=== PATIENT | male | born 1990 | race African-American/Black ===

== ENCOUNTER 2017-12-03 17:01 | Emergency (ER) | payer BC ==
[2017-12-03] MEDS ORDERED: Ibuprofen 800 MG TAB ONE (17:21)
== END 2017-12-03 18:02 | disposition home or self-care (01) ==
LOC: NAV ERS 17:01
DX: J06.9 Acute upper respiratory infection, unspecified (principal)
CPT/HCPCS: 87081; 87430; 99283

== ENCOUNTER 2018-03-25 17:11 | Emergency (ER) | payer BC ==
[2018-03-25] MEDS ORDERED: Acetaminophen/Codeine 30-300mg Tablet ONE (17:33)
[2018-03-25] MEDS ORDERED: AMOXicillin 250 MG CAP ONE (17:34)
== END 2018-03-25 17:39 | disposition home or self-care (01) ==
LOC: NAV ERS 17:11
DX: K02.9 Dental caries, unspecified (principal)
CPT/HCPCS: 99282

== ENCOUNTER 2018-06-13 08:03 | Emergency (ER) | payer BC ==
[2018-06-13 09:52] LABS: #Eosinphils 0.1 thou/uL (0.0-0.7); #Lymphocytes 2.2 thou/uL (1.20-3.40); #Monocytes 0.6 thou/uL (0.11-0.59); #Neutrophils 4.9 thou/uL (1.40-6.50); %Basophils 0.6 % (0.0-1.0); %Lymphocytes 28.2 % (21.0-51.0); %Monocytes 7.7 % (0.0-10.0); %Neutrophils 62.5 % (42.0-75.0); Hemoglobin 15.4 g/dL (14.0-18.0); Mean Corpuscular HGB CONC 31.7 g/dL (32.0-36.0); Mean Corpuscular Hemoglobin 26.6 pg (27.0-31.0); Mean Platelet Volume 10.7 fL (7.4-10.4); Platelet Count 190 thou/uL (130-400); Red Blood Cell (RBC) Count 5.76 mill/uL (4.70-6.10); White Blood Cell (WBC) Count 7.8 thou/uL (4.8-10.8)
[2018-06-13 10:08] LABS: ALT (SGPT) 20 U/L (8-55); AST (SGOT) 15 U/L (5-34); Albumin 4.2 g/dL (3.5-5.0); Alkaline Phosphatase 56 U/L (40-150); Anion Gap 13 mmol/L (10-20); BUN (Urea Nitrogen) 11 mg/dL (8.9-20.6); Bilirubin, Total 0.4 mg/dL (0.2-1.2); Calc. Creatinine Clearance 0 mL/min (70-130); Calcium 9.7 mg/dL (7.8-10.44); Carbon Dioxide 27 mmol/L (22-29); Chloride 102 mmol/L (98-107); Estimated GFR-MDRD 90; Globulin 3.3 g/dL (2.4-3.5); Glucose 109 mg/dL (70-105); Lipase 13 U/L (8-78); Potassium 3.8 mmol/L (3.5-5.1); Protein, Total 7.5 g/dL (6.0-8.3); Sodium 138 mmol/L (136-145)
== END 2018-06-13 10:20 | disposition home or self-care (01) ==
LOC: NAV ERS 08:03
DX: A08.4 Viral intestinal infection, unspecified (principal)
CPT/HCPCS: 80053; 83690; 85025; 99284

== ENCOUNTER 2020-08-27 05:00 | Emergency (ER) | payer BC ==
[2020-08-27 05:35] LABS: Bilirubin Small (Negative); Blood, Urine Large (Negative); Clarity Slightly Cloudy (Clear); Glucose, Urine (Dipstick) Negative (Negative); Ketone, Urine Negative (Negative); Leukocyte Negative (Negative); Nitrite Negative (Negative); Protein, Urine (Dipstick) 30 mg/dL (Neg-Trace); pH, Urine 5.5 (5.0-9.0)
[2020-08-27 05:37] LABS: Specific Gravity, Urine 1.034 (1.002-1.036)
[2020-08-27 05:40] LABS: Bacteria/HPF None Seen HPF (None Seen); RBC/HPF Greater than 50 HPF (0-3); Squamous Epithelial 0-3 HPF (0-3); WBC/HPF 0-3 HPF (0-3)
[2020-08-27 05:42] LABS: #Basophils 0.1 thou/uL (0.0-0.2); #Eosinphils 0.2 thou/uL (0.0-0.7); #Lymphocytes 3.5 thou/uL (1.20-3.40); #Monocytes 0.8 thou/uL (0.11-0.59); #Neutrophils 7.8 thou/uL (1.40-6.50); %Basophils 0.7 % (0.0-1.0); %Eosinophils 1.5 % (0.0-10.0); %Lymphocytes 28.1 % (21.0-51.0); %Monocytes 6.2 % (0.0-10.0); %Neutrophils 63.5 % (42.0-75.0); Hemoglobin 15.8 g/dL (14.0-18.0); Mean Corpuscular HGB CONC 31.3 g/dL (32.0-36.0); Mean Corpuscular Hemoglobin 28.3 pg (27.0-31.0); Mean Corpuscular Volume 90.7 fL (78.0-98.0); Mean Platelet Volume 9.7 fL (7.4-10.4); Platelet Count 190 thou/uL (130-400); RBC Distribution Width 12.9 % (11.5-14.5); Red Blood Cell (RBC) Count 5.57 mill/uL (4.70-6.10); White Blood Cell (WBC) Count 12.3 thou/uL (4.8-10.8)
[2020-08-27 05:54] LABS: ALT (SGPT) 19 U/L (8-55); AST (SGOT) 20 U/L (5-34); Albumin 4.3 g/dL (3.5-5.0); Alkaline Phosphatase 57 U/L (40-110); Anion Gap 15 mmol/L (10-20); BUN (Urea Nitrogen) 15 mg/dL (8.9-20.6); Bilirubin, Total 0.3 mg/dL (0.2-1.2); Calc. Creatinine Clearance 0 mL/min (70-130); Calcium 9.2 mg/dL (7.8-10.44); Chloride 100 mmol/L (98-107); Estimated GFR-MDRD 68; Globulin 3.4 g/dL (2.4-3.5); Glucose 125 mg/dL (70-105); Potassium 3.8 mmol/L (3.5-5.1); Protein, Total 7.7 g/dL (6.0-8.3); Sodium 137 mmol/L (136-145)
[2020-08-27] MEDS ORDERED: Ketorolac Tromethamine 30 MG/ML VIAL ONE (06:14)
[2020-08-27 06:47] LABS: Carbon Dioxide 26 mmol/L (22-29)
--- NOTE | 2020-08-27 08:39 | CT ---
PRELIMINARY REPORT/[facility]/EMERGENCY AFTER HOURS PROCEDURE: EXAM: CT Abdomen and Pelvis Without Intravenous Contrast CLINICAL HISTORY: PT REPORTS L LOWER BACK PAIN THAT BEGAN AT 1 AM. PT REPORTS THROBBING PAIN THAT TRAVELS DOWN TO HIS S UPRAPUBIC REGION. PT DENIES URINARY COMPLAINTS AND CVA TENDERNESS. Shunt presents with right low back and flank pain started last night. Denies any trauma reports he just [place] and back yester day no hematuria no history of kidney stones pain was initially reported as a 5 out of 10 he denies t esticular pain or abdominal pain. And again denies trauma or activity that would have caused this. No fever chills or known coronavirus exposure no nausea he did try heating pad last night pain started about 1 in the morning it woke him up. TECHNIQUE: Axial computed tomography images of the abdomen and pelvis without intravenous contrast. CONTRAST: None. COMPARISON: None provided. FINDINGS: LUNG BASES: No basilar airspace consolidation or pleural effusion. LIVER: Unremarkable. GALLBLADDER AND BILE DUCTS: Unremarkable. No calcified stone. No ductal dilation. PANCREAS: Unremarkable. SPLEEN: Unremarkable. ADRENAL GLANDS: Unremarkable. KIDNEYS, URETERS, AND BLADDER: Moderate hydronephrosis of the left kidney with a UPJ stone measuring 2-3 mm in size. No intrarenal stones are seen. Right kidney and collecting system grossly unremarkable on this noncontrast exam. STOMACH AND BOWEL: Evaluation of the GI tract is limited due to lack of contrast and limited distention of the GI tract. No obvious, acute GI abnormalities are identified. APPENDIX: Normal appendix. PERITONEUM: No free fluid. No free air. LYMPH NODES: No lymphadenopathy. VASCULATURE: No aortic aneurysm. ABDOMINAL WALL AND SOFT TISSUES: Unremarkable. BONES: No fracture or suspicious osseous abnormality. IMPRESSION: UPJ stone on the left with hydronephrosis. ELECTRONICALLY SIGNED BY: Alvarado Munoz MD Aug 27, 2020 6:43:55 AM CDT This report is intended for review by the ordering physician only, in accordance of law. If you recei ve this report in error, please call [facility] at [phone]. FINAL REPORT ABDOMEN CT WITHOUT CONTRAST PELVIC CT WITHOUT CONTRAST: Date: 08/27/2020 HISTORY: Low back pain. Pain along costovertebral angle. COMPARISON: None. FINDINGS: ABDOMEN CT: Lung bases clear. Normal heart size. Normal aorta. Limited evaluation of solid organs by lack of IV contrast. Grossly, no solid organ abnormality. Contr acted gallbladder with a small amount of floating stones. No gastrohepatic, retrocrural, or periportal lymphadenopathy. Limited evaluation of the alimentary canal by lack of oral contrast. No evidence of bowel obstruction . Normal caliber appendix. No evidence of right-sided obstructive uropathy. There is mild left-sided obstructive uropathy second bhavesh to a solitary calculus in the left ureter measuring 0.[address]: No mass, lymphadenopathy, free air, or free fluid. IMPRESSION: This report is in agreement with the initial report by [facility]. Mild left-sided hydronephrosis secondary to a solitary calculus in the proximal left ureter. POS: OFF
== END 2020-08-27 07:09 | disposition home or self-care (01) ==
LOC: NAV ERS 05:00
DX: N13.2 Hydronephrosis with renal and ureteral calculous obstruction (principal)
CPT/HCPCS: 74176; 80053; 81003; 81015; 85025; 87086; 96372; J1885

== ENCOUNTER 2021-08-13 18:53 | Emergency (ER) | payer BC ==
[2021-08-13] MEDS ORDERED: HYDROcodone/Acetaminophen 5/325 mg Tablet ONE (19:31)
== END 2021-08-13 19:40 | disposition home or self-care (01) ==
LOC: NAV ERS 18:53
DX: K02.9 Dental caries, unspecified (principal)
CPT/HCPCS: 99282

== ENCOUNTER 2022-06-03 19:55 | Emergency (ER) | payer BC ==
[2022-06-03] MEDS ORDERED: Amoxicillin/Potassium Clav 875 MG TAB ONE (20:23)
== END 2022-06-03 20:27 | disposition home or self-care (01) ==
LOC: NAV ERS 19:55
DX: K08.89 Other specified disorders of teeth and supporting structures (principal)
CPT/HCPCS: 99282

== ENCOUNTER 2022-10-18 04:20 | Emergency (ER) | payer BC ==
[2022-10-18 04:59] LABS: #Basophils 0.1 thou/uL (0.0-0.2); #Eosinphils 0.4 thou/uL (0.0-0.7); #Neutrophils 4.5 thou/uL (1.40-6.50); %Eosinophils 3.6 % (0.0-10.0); %Lymphocytes 45.3 % (21.0-51.0); %Neutrophils 41.1 % (42.0-75.0); Hemoglobin 16.3 g/dL (14.0-18.0); Mean Corpuscular HGB CONC 31.4 g/dL (32.0-36.0); Mean Corpuscular Hemoglobin 28.4 pg (27.0-31.0); Mean Corpuscular Volume 90.5 fl (78.0-98.0); Mean Platelet Volume 9.8 fL (7.4-10.4); Platelet Count 204 10x3/uL (130-400); RBC Distribution Width 12.8 % (11.5-14.5); Red Blood Cell (RBC) Count 5.73 mill/uL (4.70-6.10); White Blood Cell (WBC) Count 10.9 10x3/uL (4.8-10.8)
[2022-10-18] MEDS ORDERED: Mag-Al Plus 1200 MG/1200 MG/120 MG/30 ML UDCUP ONE (05:09)
[2022-10-18] MEDS ORDERED: Lidocaine Viscous Sol 2% 15 ml UD Cup ONE (05:09)
[2022-10-18 05:13] LABS: ALT (SGPT) 242 U/L (8-55); AST (SGOT) 46 U/L (5-34); Albumin 4.5 g/dL (3.5-5.0); Alkaline Phosphatase 90 U/L (40-110); Anion Gap 13 mmol/L (10-20); BUN (Urea Nitrogen) 18 mg/dL (8.9-20.6); Bilirubin, Total 0.3 mg/dL (0.2-1.2); Calc. Creatinine Clearance 0 mL/min (70-130); Calcium 9.6 mg/dL (7.8-10.44); Carbon Dioxide 28 mmol/L (22-29); Chloride 101 mmol/L (98-107); Estimated GFR 67; Lipase 27 U/L (8-78); Potassium 3.9 mmol/L (3.5-5.1); Protein, Total 7.5 g/dL (6.0-8.3); Sodium 138 mmol/L (136-145)
[2022-10-18 05:19] LABS: Glucose 127 mg/dL (70-105)
== END 2022-10-18 05:55 | disposition home or self-care (01) ==
LOC: NAV ERS 04:20
DX: K21.00 Gastro-esophageal reflux disease with esophagitis, without bleeding (principal)
CPT/HCPCS: 80053; 83690; 84484; 85025; 93005

== ENCOUNTER 2023-02-20 05:35 | Emergency (ER) | payer BC ==
[2023-02-20] MEDS ORDERED: Lidocaine Viscous Sol 2% 15 ml UD Cup ONE (06:14)
[2023-02-20] MEDS ORDERED: Mag-Al Plus 1200 MG/1200 MG/120 MG/30 ML UDCUP ONE (06:14)
== END 2023-02-20 07:07 | disposition home or self-care (01) ==
LOC: NAV ERS 05:35
DX: K21.9 Gastro-esophageal reflux disease without esophagitis (principal)
CPT/HCPCS: 93005

== ENCOUNTER 2023-11-05 01:31 | Emergency (ER) | payer BC ==
[2023-11-05] MEDS ORDERED: Mag-Al Plus 1200/1200/120 MG (30 mL) UDCUP ONE (01:46)
[2023-11-05] MEDS ORDERED: Sucralfate 1 GM/10 ML UDCUP ONE (02:36)
== END 2023-11-05 03:23 | disposition home or self-care (01) ==
LOC: NAV ERS 01:31
DX: K21.00 Gastro-esophageal reflux disease with esophagitis, without bleeding (principal)
CPT/HCPCS: 99283

== ENCOUNTER 2025-08-14 16:12 | Emergency (ER) | payer BC, SELFPAY ==
[2025-08-14] MEDS ORDERED: Fluorescein Opthalmic Strip ONE (16:29)
[2025-08-14] MEDS ORDERED: Proparacaine 0.5% Opth 15 ML BOT ONE (16:29)
== END 2025-08-14 16:57 | disposition home or self-care (01) ==
LOC: NAV ERS 16:12
DX: S05.02XA Injury of conjunctiva and corneal abrasion without foreign body, left eye, initial encounter (principal); X58.XXXA Exposure to other specified factors, initial encounter
CPT/HCPCS: 99283